=== PATIENT | male | born 1945 | race Caucasian/White ===

== ENCOUNTER 2023-08-09 10:55 | Outpatient (CLI) | payer MEDICARE | END 2023-08-09 10:56 | disposition home or self-care (01) | LOC: CSHCT 10:55 | PROVIDERS: ATTEND Family Medicine | DX: Z12.2 Encounter for screening for malignant neoplasm of respiratory organs (principal); F17.210 Nicotine dependence, cigarettes, uncomplicated | CPT/HCPCS: 71271 ==

== ENCOUNTER 2024-04-21 12:10 | Emergency (ER) | payer MEDICARE ==
[2024-04-21 12:50] LABS: ALT (SGPT) 9 U/L (8-55); AST (SGOT) 16 U/L (5-34); Albumin 3.5 g/dL (3.4-4.8); Alkaline Phosphatase 75 U/L (40-110); Anion Gap 13 mmol/L (10-20); BUN (Urea Nitrogen) 15 mg/dL (8.4-25.7); Bilirubin, Total 1.6 mg/dL (0.2-1.2); CK (CPK) 56 U/L (30-200); Calc. Creatinine Clearance 0 mL/min (70-130); Calcium 8.8 mg/dL (7.8-10.44); Carbon Dioxide 22 mmol/L (23-31); Chloride 106 mmol/L (98-107); Estimated GFR 76; Globulin 2.7 g/dL (2.4-3.5); Glucose 147 mg/dL (83-110); Lipase 28 U/L (8-78); Protein, Total 6.2 g/dL (5.8-8.1); Sodium 137 mmol/L (136-145)
[2024-04-21 12:55] LABS: #Basophils 0.06 10x3/uL (0.0-0.2); #Eosinphils 0.07 10x3/uL (0.0-0.5); #Monocytes 0.51 10x3/uL (0.0-1.1); #Neutrophils 5.27 10x3/uL (1.5-8.4); %Basophils 0.9 % (0.0-2.0); %Lymphocytes 12.3 % (18.0-47.0); %Monocytes 7.5 % (0.0-10.0); Hematocrit 41.6 % (38.8-50.0); Hemoglobin 14.6 g/dL (13.5-17.5); Mean Corpuscular HGB CONC 35.1 g/dL (32.0-36.0); Mean Corpuscular Hemoglobin 31.9 pg (27.0-33.0); Mean Corpuscular Volume 90.8 fL (81.2-95.1); Mean Platelet Volume 9.6 fL (7.4-10.4); Platelet Count 194 10x3/uL (150-450); RBC Distribution Width 13.1 % (11.5-14.5); Red Blood Cell (RBC) Count 4.58 10x6/uL (4.32-5.72); White Blood Cell (WBC) Count 6.8 10x3/uL (3.5-10.5)
[2024-04-21 13:40] LABS: Troponin I Less than 0.010 ng/mL (< 0.028)
[2024-04-21 14:06] LABS: Bilirubin Neg (Negative); Blood, Urine Negative (Negative); Glucose, Urine (Dipstick) 50 mg/dL (Negative); Ketone, Urine Negative (Negative); Leukocyte 25 (Negative); Nitrite Negative (Negative); Protein, Urine (Dipstick) Negative (Neg-Trace); Specific Gravity, Urine 1.025 (1.005-1.030)
[2024-04-21 14:16] LABS: Clarity Hazy (Clear)
[2024-04-21 14:19] LABS: CAUTI Indications for Culture Alt mental st,lethar; RBC/HPF 0-3 HPF (0-3)
[2024-04-21 14:20] LABS: Bacteria/HPF 2+ HPF (None Seen)
[2024-04-21 14:21] LABS: Mucous/LPF 2+ LPF (<2+)
[2024-04-21 14:22] LABS: Urine Culture Reflex No No
[2024-04-21 14:38] LABS: Influenza A by NAA Not Detected (NotDetected); Influenza B by NAA Not Detected (NotDetected); SARS-CoV-2 NAA Rapid Test Not Detected (NotDetected)
== END 2024-04-21 14:40 | disposition home or self-care (01) ==
LOC: CSHERS 12:10
DX: N39.0 Urinary tract infection, site not specified (principal); E86.0 Dehydration; I10 Essential (primary) hypertension; E11.9 Type 2 diabetes mellitus without complications; Z87.891 Personal history of nicotine dependence
CPT/HCPCS: 0240U; 71045; 80053; 81001; 82550; 83690; 84484; 85025; 87086; 93005

== ENCOUNTER 2025-07-16 13:01 | Emergency (ER) | payer MEDICARE ==
[~2025-07-16 13:01] MED LIST: Iopamidol 370 76% 100 ML VIAL ONE
[2025-07-16 14:46] LABS: #Basophils 0.06 10x3/uL (0.0-0.2); #Eosinophils 0.17 10x3/uL (0.0-0.5); #Monocytes 0.59 10x3/uL (0.0-1.1); #Neutrophils 5.25 10x3/uL (1.5-8.4); %Basophils 0.8 % (0.0-2.0); %Eosinophils 2.3 % (0.0-6.0); %Lymphocytes 17.1 % (18.0-47.0); %Monocytes 8.0 % (0.0-10.0); %Neutrophils 71.4 % (40.0-75.0); Hematocrit 37.4 % (38.8-50.0); Hemoglobin 12.9 g/dL (13.5-17.5); Mean Corpuscular Hemoglobin 31.5 pg (27.0-33.0); Mean Corpuscular Volume 91.2 fL (81.2-95.1); Platelet Count 228 10x3/uL (150-450); Red Blood Cell (RBC) Count 4.10 10x6/uL (4.32-5.72); White Blood Cell (WBC) Count 7.36 10x3/uL (3.5-10.5)
[2025-07-16 15:02] LABS: ALT (SGPT) 14 U/L (Less than 45); AST (SGOT) 16 U/L (11-34); Albumin 3.7 g/dL (3.1-4.5); Alkaline Phosphatase 75 U/L (40-110); Anion Gap 10 mmol/L (10-20); BUN (Urea Nitrogen) 10 mg/dL (8.4-25.7); Bilirubin, Total 1.6 mg/dL (0.3-1.2); Calc. Creatinine Clearance 0 mL/min (70-130); Calcium 9.0 mg/dL (7.8-10.44); Carbon Dioxide 30 mmol/L (23-31); Chloride 103 mmol/L (98-107); Globulin 2.3 g/dL (2.4-3.5); Glucose 158 mg/dL (83-110); Potassium 4.3 mmol/L (3.5-5.1); Sodium 139 mmol/L (136-145)
[2025-07-16 15:04] LABS: Troponin I Less than 0.010 ng/mL (< 0.028)
[2025-07-16] MEDS ORDERED: Apixaban 5 MG TAB ONE (16:46)
== END 2025-07-16 16:50 | disposition home or self-care (01) ==
LOC: CSHERS 13:01
DX: I26.99 Other pulmonary embolism without acute cor pulmonale (principal); E66.01 Morbid (severe) obesity due to excess calories; E11.9 Type 2 diabetes mellitus without complications; I10 Essential (primary) hypertension; Z87.891 Personal history of nicotine dependence
CPT/HCPCS: 71275; 80053; 83880; 84484; 85025; 93005; J1650; 36415; 96372